=== PATIENT | male | born 1945 | race Two or more races ===

== ENCOUNTER 2018-07-20 06:17 | Day surgery (SDC) | payer OTHER ==
[~2018-07-20 06:17] MED LIST: LACTATED RINGER'S 1,000 ML IV
[2018-07-20] MEDS ORDERED: CEFAZOLIN 1 GM INJ (07:00)
[2018-07-20] MEDS: MOXIFLOXACIN 0.5% 3 ML OPH OPER (07:20)
[2018-07-20] MEDS: TETRACAINE 0.5% 4 ML OPH OPER ×2 (07:20→08:35)
[2018-07-20] MEDS: CYCLOPENTOLATE 2% 2 ML OPH OPER (07:20)
[2018-07-20] MEDS: BROMFENAC SODIUM 1.7 ML OPH DROP OPER (07:21)
[2018-07-20] MEDS: PHENYLephrine 10% 5 ML OPH OPER (07:21)
[2018-07-20] MEDS: TROPICAMIDE 1% 3 ML OPH OPER (07:21)
[2018-07-20] MEDS ORDERED: LIDOCAINE 3.5% GEL TUBE (07:22)
[2018-07-20] MEDS: LIDOCAINE 3.5% GEL TUBE OPER (07:23)
[2018-07-20] MEDS ORDERED: TETRACAINE 0.5% 4 ML OPH (07:27)
[2018-07-20] MEDS ORDERED: LIDOCAINE 1%/EPI 30 ML INJ (07:27)
[2018-07-20] MEDS ORDERED: EPINEPHrine 1 MG INJ (07:27)
[2018-07-20] MEDS ORDERED: NA HYALURONATE/CHONDROITIN 0.5 ML SYG (07:33)
[2018-07-20] MEDS ORDERED: LIDOCAINE 2% (SDV) 5 ML INJ (08:12)
[2018-07-20] MEDS ORDERED: PROPOFOL 20 ML (08:12)
[2018-07-20] MEDS ORDERED: MIDAZOLAM 1 MG/ML 2 ML INJ (08:22)
[2018-07-20] MEDS ORDERED: ONDANSETRON 4 MG INJ IV (08:30)
[2018-07-20] MEDS ORDERED: ALBUTEROL 0.083% (NEB) 2.5 MG/3 ML AMP HHN (08:30)
[2018-07-20] MEDS ORDERED: LABETALOL HCL 20MG INJ IV (08:30)
[2018-07-20] MEDS ORDERED: ACETAMINOPHEN 1000MG/100ML IV 100 ML IVPB (08:30)
[2018-07-20] MEDS ORDERED: DIPHENHYDRAMINE 50 MG INJ IV (08:30)
[2018-07-20] MEDS ORDERED: OXYCODONE/ACETAMINOPHEN (5/325) TAB PO (08:30)
[2018-07-20] MEDS ORDERED: hydrALAzine 20 MG INJ IV (08:30)
[2018-07-20] MEDS: LIDOCAINE 1%/EPI (MDV) 50 ML INJ INJ (08:34)
[2018-07-20] MEDS: CARBACHOL 0.01% 1.5 ML OPH INJ (08:35)
[2018-07-20] MEDS: TOBRAMYCIN 0.3% 3.5 GM OPH OINT (08:36)
[2018-07-20] MEDS ORDERED: FENTAnyl 50 MCG/ML VIAL (08:37)
[2018-07-20] MEDS ORDERED: TRYPAN BLUE 0.5 ML SYG IO (08:39)
== END 2018-07-20 10:05 | disposition home or self-care (01) ==
LOC: SDS 06:17
DX: H25.89 Other age-related cataract (principal); E11.9 Type 2 diabetes mellitus without complications; I10 Essential (primary) hypertension
CPT/HCPCS: 66984; 82962

== ENCOUNTER 2018-08-16 07:59 | Day surgery (SDC) | payer OTHER ==
[~2018-08-16 07:59] MED LIST changes: +CEFAZOLIN 1 GM INJ; -LACTATED RINGER'S 1,000 ML IV; +PROPOFOL 200 MG INJ
[2018-08-16] MEDS: LACTATED RINGER'S 1,000 ML IV (09:15)
[2018-08-16] MEDS: TROPICAMIDE 1% 3 ML OPH OPER (09:27)
[2018-08-16] MEDS: PHENYLephrine 10% 5 ML OPH OPER (09:28)
[2018-08-16] MEDS: TETRACAINE 0.5% 4 ML OPH OPER ×2 (09:28→13:00)
[2018-08-16] MEDS: MOXIFLOXACIN 0.5% 3 ML OPH OPER (09:29)
[2018-08-16] MEDS: LIDOCAINE 3.5% GEL TUBE OPER (09:29)
[2018-08-16] MEDS: BROMFENAC SODIUM 1.7 ML OPH DROP OPER (09:30)
[2018-08-16] MEDS ORDERED: LABETALOL HCL 20MG INJ IV (10:00)
[2018-08-16] MEDS ORDERED: DIPHENHYDRAMINE 50 MG INJ IV (10:00)
[2018-08-16] MEDS ORDERED: ALBUTEROL 0.083% (NEB) 2.5 MG/3 ML AMP HHN (10:00)
[2018-08-16] MEDS ORDERED: ACETAMINOPHEN 325 MG TAB PO (10:00)
[2018-08-16] MEDS ORDERED: hydrALAzine 20 MG INJ IV (10:00)
[2018-08-16] MEDS ORDERED: ACETAMINOPHEN 500 MG TAB PO (10:00)
[2018-08-16 11:13] LABS: ADD MAN DIFF? NO
[2018-08-16 11:15] LABS: BASOPHILS % 0.7 % (0.0-2.0); EOSINOPHILS # 0.1 10^3/ul (0.0-0.5); EOSINOPHILS % 2.6 % (0.0-7.0); HEMATOCRIT 36.7 % (42.0-52.0); HEMOGLOBIN 12.4 g/dl (14.0-18.0); LYMPHOCYTES # 1.7 10^3/ul (0.8-2.9); LYMPHOCYTES % 31.1 % (15.0-51.0); MEAN CORPUSCULAR HEMOGLOBIN 30.2 pg (29.0-33.0); MEAN CORPUSCULAR HGB CONC 33.8 g/dl (32.0-37.0); MEAN CORPUSCULAR VOLUME 89.3 fl (82.0-101.0); MEAN PLATELET VOLUME 10.5 fl (7.4-10.4); MONOCYTE # 0.5 10^3/ul (0.3-0.9); MONOCYTES % 8.6 % (0.0-11.0); NEUTROPHILS % 56.6 % (39.0-77.0); PLATELET COUNT 199 10^3/UL (140-415); RED BLOOD COUNT 4.11 10^6/ul (4.70-6.10); RED CELL DISTRIBUTION WIDTH 12.6 % (11.5-14.5)
[2018-08-16 11:15] LABS: WHITE BLOOD COUNT 5.4 10^3/ul (4.8-10.8)
[2018-08-16 11:18] LABS: INR 0.91; PROTIME 12.3 Sec (11.9-14.9)
[2018-08-16 11:19] LABS: PARTIAL THROMBOPLASTIN TIME 33.7 Sec (23.0-35.0)
[2018-08-16 11:20] LABS: ANION GAP 11 (5-13); BLOOD UREA NITROGEN 12 mg/dl (7-20); CALCIUM 8.9 mg/dl (8.4-10.2); CARBON DIOXIDE 28 mmol/L (21-31); CHLORIDE 103 mmol/L (97-110); CREATININE 0.72 mg/dl (0.61-1.24); Estimated GFR > 60 mL/min (>60); GLUCOSE 145 mg/dl (70-220); POTASSIUM 4.1 mmol/L (3.5-5.1); SODIUM 142 mmol/L (135-144)
[2018-08-16] MEDS ORDERED: CARBACHOL 0.01% 1.5 ML OPH INJ ×2 (11:22→12:17)
[2018-08-16] MEDS ORDERED: TETRACAINE 0.5% 4 ML OPH (11:22)
[2018-08-16] MEDS ORDERED: MIDAZOLAM 1 MG/ML 2 ML INJ (12:18)
[2018-08-16] MEDS ORDERED: TRYPAN BLUE 0.5 ML SYG IO (12:19)
[2018-08-16] MEDS: TOBRAMYCIN/DEXAMETH 3.5 GM OPH OINT (13:00)
[2018-08-16] MEDS: LIDOCAINE 1%/EPI 30 ML INJ (13:00)
[2018-08-16] MEDS: OXYCODONE/ACETAMINOPHEN (5/325) TAB PO ×2 (13:08→14:00)
[2018-08-16] MEDS: ONDANSETRON 4 MG INJ IV (13:15)
[2018-08-16] MEDS ORDERED: OXYCODONE/ACETAMINOPHEN (5/325) TAB PO (14:00)
== END 2018-08-16 14:15 | disposition home or self-care (01) ==
LOC: SDS 07:59
DX: H25.22 Age-related cataract, morgagnian type, left eye (principal); I10 Essential (primary) hypertension; E11.9 Type 2 diabetes mellitus without complications
CPT/HCPCS: 66984; 71045; 80048; 82962; 85025; 85610; 85730; 93005

== ENCOUNTER → 2019-05-13 | Outpatient (CLI) | payer OTHER | END | disposition home or self-care (01) | LOC: RAD 16:07 | DX: J90 Pleural effusion, not elsewhere classified (principal); J98.11 Atelectasis; R05 Cough | CPT/HCPCS: 71046 ==